=== PATIENT | female | born 1990 | race Caucasian/White ===

== ENCOUNTER 2024-04-26 19:17 | Emergency (ER) | payer OTHER ==
[~2024-04-26] VITALS: Ht 160 cm; Wt 86.2 kg
[2024-04-26 20:04] VITALS: BP 127/60; PULSE 67; RESP 16; TEMP 97.4; O2SAT 98
== END 2024-04-26 22:10 | disposition left against medical advice (07) ==
LOC: MED 19:17
DX: H57.10 Ocular pain, unspecified eye (principal); Z53.21 Procedure and treatment not carried out due to patient leaving prior to being seen by health care provider